=== PATIENT | female | born 1990 | race Caucasian/White ===

== ENCOUNTER 2017-11-22 09:57 | Emergency (ER) | payer MEDICAID ==
[~2017-11-22] VITALS: Ht 157.5 cm; Wt 70.3 kg
[2017-11-22 10:17] VITALS: Ht 157.5 cm; Wt 70.3 kg
[2017-11-22 11:07] LABS: BASOPHIL % 0.4 % (0-2); PLATELET COUNT 289 x10^3mcL (130-400); RED CELL DISTRIBUTION WIDTH 12.6 % (11.5-14.5)
[2017-11-22 11:22] LABS: CALCIUM 9.1 mg/dL (8.5-10.1); CARBON DIOXIDE 27.6 mmol/L (21-32); CHLORIDE SERUM 107 mmol/L (98-107); CREATININE SERUM 0.7 mg/dL (0.6-1.0); GFR1 > 60 mL/min; GLUCOSE SERUM 91 mg/dL (74-106); POTASSIUM SERUM 3.8 mmol/L (3.5-5.1); SODIUM SERUM 144 mmol/L (136-145)
[2017-11-22 11:30] LABS: ALBUMIN 4.1 g/dL (3.4-5.0); ALKALINE PHOSPHATASE 111 U/L (46-116); ALT/SGPT 25 U/L (14-59); AMYLASE 52 U/L (25-115); AST/SGOT 18 U/L (15-37); BILIRUBIN TOTAL 0.43 mg/dL (0.20-1.00); LIPASE 164 IU/L (73-393); TOTAL PROTEIN, SERUM 8.2 g/dL (6.4-8.2)
[2017-11-22 12:22] VITALS: BP 111/72
== END 2017-11-22 12:23 | disposition home or self-care (01) ==
LOC: ED 09:57
PROVIDERS: Specialist
DX: Z86.69 Personal history of other diseases of the nervous system and sense organs (principal); R10.11 Right upper quadrant pain
CPT/HCPCS: J1885; J2765; J7030; Q0092

== ENCOUNTER 2018-02-15 15:46 | Emergency (ER) | payer MEDICAID ==
[~2018-02-15] VITALS: Ht 157.5 cm; Wt 71.7 kg
[2018-02-15 16:00] VITALS: Ht 157.5 cm; Wt 71.7 kg
[2018-02-15 17:34] LABS: BASOPHIL % 0.3 % (0-2); PLATELET COUNT 342 x10^3mcL (130-400); RED CELL DISTRIBUTION WIDTH 13.4 % (11.5-14.5)
[2018-02-15 17:45] LABS: ALBUMIN 4.3 g/dL (3.4-5.0); ALKALINE PHOSPHATASE 112 U/L (46-116); ALT/SGPT 23 U/L (14-59); AST/SGOT 17 U/L (15-37); BILIRUBIN TOTAL 0.3 mg/dL (0.20-1.00); CALCIUM 9.4 mg/dL (8.5-10.1); CARBON DIOXIDE 25.8 mmol/L (21-32); CHLORIDE SERUM 101 mmol/L (98-107); CREATININE SERUM 0.7 mg/dL (0.6-1.0); GFR1 > 60 mL/min; GLUCOSE SERUM 95 mg/dL (74-106); SODIUM SERUM 138 mmol/L (136-145)
[2018-02-15 17:51] LABS: TOTAL PROTEIN, SERUM 8.7 g/dL (6.4-8.2)
[2018-02-15 17:52] LABS: POTASSIUM SERUM 2.7 mmol/L (3.5-5.1)
[2018-02-15 20:35] VITALS: BP 120/65
== END 2018-02-15 20:35 | disposition home or self-care (01) ==
LOC: ED 15:46
PROVIDERS: Emergency Medicine
DX: E87.6 Hypokalemia (principal); R07.89 Other chest pain
CPT/HCPCS: 85378; J1885; J3480; J7030; Q0092

== ENCOUNTER 2019-01-29 10:01 | Emergency (ER) | payer SELFPAY ==
[~2019-01-29] VITALS: Ht 165.1 cm; Wt 63.5 kg
[2019-01-29 10:03] VITALS: Ht 165.1 cm; Wt 63.5 kg
[2019-01-29 11:29] VITALS: BP 104/56
== END 2019-01-29 11:29 | disposition home or self-care (01) ==
LOC: ED 10:01
DX: G40.909 Epilepsy, unspecified, not intractable, without status epilepticus (principal); Z76.0 Encounter for issue of repeat prescription
CPT/HCPCS: 82962

== ENCOUNTER 2019-02-02 19:18 | Emergency (ER) | payer SELFPAY ==
[~2019-02-02] VITALS: Ht 157.5 cm; Wt 68.5 kg
[2019-02-02 19:27] VITALS: Ht 157.5 cm; Wt 68.5 kg
[2019-02-02 19:56] LABS: BASOPHIL % 0.3 % (0-2); PLATELET COUNT 382 x10^3mcL (130-400); RED CELL DISTRIBUTION WIDTH 13.9 % (11.5-14.5)
[2019-02-02 20:05] LABS: CALCIUM 8.9 mg/dL (8.5-10.1); CARBON DIOXIDE 29.6 mmol/L (21-32); CHLORIDE SERUM 103 mmol/L (98-107); CREATININE SERUM 0.7 mg/dL (0.6-1.0); GFR1 > 60 mL/min; GLUCOSE SERUM 105 mg/dL (74-106); POTASSIUM SERUM 3.3 mmol/L (3.5-5.1); SODIUM SERUM 141 mmol/L (136-145)
[2019-02-02 20:12] LABS: ALBUMIN 4.4 g/dL (3.4-5.0); ALKALINE PHOSPHATASE 106 U/L (46-116); ALT/SGPT 23 U/L (14-59); AST/SGOT 21 U/L (15-37); BILIRUBIN TOTAL 0.3 mg/dL (0.20-1.00)
[2019-02-02 20:13] LABS: TOTAL PROTEIN, SERUM 8.5 g/dL (6.4-8.2)
[2019-02-02 21:20] VITALS: BP 111/65
== END 2019-02-02 21:20 | disposition home or self-care (01) ==
LOC: ED 19:18
DX: R07.89 Other chest pain (principal); R42 Dizziness and giddiness
CPT/HCPCS: 36415

== ENCOUNTER 2019-02-08 13:27 | Emergency (ER) | payer MEDICAID ==
[~2019-02-08] VITALS: Ht 157.5 cm; Wt 68.0 kg
[2019-02-08 13:32] VITALS: Ht 157.5 cm; Wt 68.0 kg
[2019-02-08 15:59] VITALS: BP 122/81
== END 2019-02-08 15:59 | disposition home or self-care (01) ==
LOC: ED 13:27
DX: F41.9 Anxiety disorder, unspecified (principal)
CPT/HCPCS: J2060

== ENCOUNTER 2019-02-20 12:25 | Emergency (ER) | payer MEDICAID ==
[~2019-02-20] VITALS: Ht 157.5 cm; Wt 68.3 kg
[2019-02-20 12:29] VITALS: Ht 157.5 cm; Wt 68.3 kg
[2019-02-20 16:45] VITALS: BP 100/64
== END 2019-02-20 16:45 | disposition home or self-care (01) ==
LOC: ED 12:25
DX: R42 Dizziness and giddiness (principal)
CPT/HCPCS: J2060; J8597

== ENCOUNTER 2019-03-05 15:54 | Emergency (ER) | payer MEDICAID ==
[~2019-03-05] VITALS: Ht 157.5 cm; Wt 68.0 kg
[2019-03-05 15:57] VITALS: Ht 157.5 cm; Wt 68.0 kg
[2019-03-05 17:44] LABS: BASOPHIL % 0.4 % (0-2); PLATELET COUNT 310 x10^3mcL (130-400); RED CELL DISTRIBUTION WIDTH 13.1 % (11.5-14.5)
[2019-03-05 18:01] LABS: CALCIUM 9.2 mg/dL (8.5-10.1); CARBON DIOXIDE 32.6 mmol/L (21-32); CHLORIDE SERUM 101 mmol/L (98-107); CREATININE SERUM 0.8 mg/dL (0.6-1.0); GFR1 > 60 mL/min; GLUCOSE SERUM 92 mg/dL (74-106); POTASSIUM SERUM 3.9 mmol/L (3.5-5.1); SODIUM SERUM 138 mmol/L (136-145)
[2019-03-05 18:06] LABS: ALBUMIN 3.8 g/dL (3.4-5.0); ALKALINE PHOSPHATASE 93 U/L (46-116); ALT/SGPT 23 U/L (14-59); AST/SGOT 14 U/L (15-37); BILIRUBIN TOTAL 0.17 mg/dL (0.20-1.00); TOTAL PROTEIN, SERUM 7.6 g/dL (6.4-8.2)
[2019-03-05 18:56] VITALS: BP 128/79
== END 2019-03-05 18:56 | disposition home or self-care (01) ==
LOC: ED 15:54
PROVIDERS: Emergency Medicine
DX: R56.9 Unspecified convulsions (principal)
CPT/HCPCS: J1953

== ENCOUNTER 2019-03-28 14:58 | Emergency (ER) | payer MEDICAID ==
[~2019-03-28] VITALS: Ht 157.5 cm; Wt 64.9 kg
[2019-03-28 15:00] VITALS: Ht 157.5 cm; Wt 64.9 kg
== END 2019-03-28 15:34 | disposition home or self-care (01) ==
LOC: ED 14:58
DX: B34.9 Viral infection, unspecified (principal)

== ENCOUNTER 2019-03-30 06:16 | Emergency (ER) | payer MEDICAID ==
[~2019-03-30] VITALS: Ht 157.5 cm; Wt 65.8 kg
[2019-03-30 06:17] VITALS: Ht 157.5 cm; Wt 65.8 kg
[2019-03-30 10:46] VITALS: BP 113/81
== END 2019-03-30 10:46 | disposition home or self-care (01) ==
LOC: ED 06:16
DX: G40.909 Epilepsy, unspecified, not intractable, without status epilepticus (principal); J98.01 Acute bronchospasm
CPT/HCPCS: J2930; J7613; J7644

== ENCOUNTER 2019-04-10 21:01 | Emergency (ER) | payer MEDICAID ==
[~2019-04-10] VITALS: Ht 157.5 cm; Wt 65.8 kg
[2019-04-10 21:05] VITALS: Ht 157.5 cm; Wt 65.8 kg
[2019-04-10 21:58] LABS: microscopic required? NO
[2019-04-10 22:05] LABS: CARBON DIOXIDE 28.7 mmol/L (21-32); CHLORIDE SERUM 101 mmol/L (98-107); GLUCOSE SERUM 88 mg/dL (74-106); POTASSIUM SERUM 3.4 mmol/L (3.5-5.1); SODIUM SERUM 138 mmol/L (136-145)
[2019-04-10 22:06] LABS: CREATININE SERUM 0.5 mg/dL (0.6-1.0); GFR1 > 60 mL/min
[2019-04-10 22:37] LABS: urine erythrocyte NEGATIVE (NEGATIVE)
[2019-04-10 22:50] LABS: AMPHETAMINE QUAL UR NONE DETECTED (See below)
[2019-04-10 23:29] VITALS: BP 103/62
== END 2019-04-10 23:29 | disposition home or self-care (01) ==
LOC: ED 21:01
PROVIDERS: Emergency Medicine
DX: R56.9 Unspecified convulsions (principal); R51 Headache; K13.0 Diseases of lips; J02.9 Acute pharyngitis, unspecified
CPT/HCPCS: J1953; J7030

== ENCOUNTER 2019-04-15 09:31 | Emergency (ER) | payer MEDICAID ==
[~2019-04-15] VITALS: Ht 157.5 cm; Wt 64.9 kg
[2019-04-15 09:33] VITALS: Ht 157.5 cm; Wt 64.9 kg
[2019-04-15 10:11] LABS: CALCIUM 9.3 mg/dL (8.5-10.1); CARBON DIOXIDE 27.6 mmol/L (21-32); CHLORIDE SERUM 104 mmol/L (98-107); CREATININE SERUM 0.6 mg/dL (0.6-1.0); GFR1 > 60 mL/min; GLUCOSE SERUM 84 mg/dL (74-106); POTASSIUM SERUM 3.9 mmol/L (3.5-5.1); SODIUM SERUM 141 mmol/L (136-145)
[2019-04-15 10:16] LABS: ALBUMIN 4.1 g/dL (3.4-5.0); ALKALINE PHOSPHATASE 71 U/L (46-116); ALT/SGPT 26 U/L (14-59); AST/SGOT 14 U/L (15-37); BILIRUBIN TOTAL 0.6 mg/dL (0.20-1.00)
[2019-04-15 11:17] VITALS: BP 111/65
== END 2019-04-15 11:17 | disposition home or self-care (01) ==
LOC: ED 09:31
PROVIDERS: Emergency Medicine
DX: R56.9 Unspecified convulsions (principal)
CPT/HCPCS: 36415; J2060

== ENCOUNTER 2019-04-26 09:44 | Emergency (ER) | payer MEDICAID ==
[~2019-04-26] VITALS: Ht 157.5 cm; Wt 63.0 kg
[2019-04-26 09:59] VITALS: BP 109/70; Ht 157.5 cm; Wt 63.0 kg
== END 2019-04-26 11:27 | disposition home or self-care (01) ==
LOC: ED 09:44
DX: R10.30 Lower abdominal pain, unspecified (principal); N93.9 Abnormal uterine and vaginal bleeding, unspecified; W01.0XXA Fall on same level from slipping, tripping and stumbling without subsequent striking against object, initial encounter; Y93.89 Activity, other specified; Y92.89 Other specified places as the place of occurrence of the external cause; Y99.8 Other external cause status

== ENCOUNTER 2019-05-04 15:19 | Emergency (ER) | payer MEDICAID ==
[~2019-05-04] VITALS: Ht 157.5 cm; Wt 64.0 kg
[2019-05-04 15:29] VITALS: Ht 157.5 cm; Wt 64.0 kg
[2019-05-04 16:11] LABS: BASOPHIL % 0.7 % (0-2); PLATELET COUNT 313 x10^3mcL (130-400); RED CELL DISTRIBUTION WIDTH 13.4 % (11.5-14.5)
[2019-05-04 16:13] LABS: UA SPECIFIC GRAVITY <=1.005 (1.005-1.035); microscopic required? YES; urine erythrocyte TRACE (NEGATIVE)
[2019-05-04 16:16] LABS: CALCIUM 9.2 mg/dL (8.5-10.1); CARBON DIOXIDE 30.5 mmol/L (21-32); CHLORIDE SERUM 106 mmol/L (98-107); CREATININE SERUM 0.6 mg/dL (0.6-1.0); GFR1 > 60 mL/min; GLUCOSE SERUM 89 mg/dL (74-106); POTASSIUM SERUM 4.1 mmol/L (3.5-5.1); SODIUM SERUM 143 mmol/L (136-145)
[2019-05-04 16:22] LABS: ALBUMIN 3.8 g/dL (3.4-5.0); ALKALINE PHOSPHATASE 83 U/L (46-116); AST/SGOT 16 U/L (15-37); BILIRUBIN TOTAL 0.27 mg/dL (0.20-1.00); TOTAL PROTEIN, SERUM 7.8 g/dL (6.4-8.2)
[2019-05-04 17:10] LABS: ALT/SGPT 23 U/L (14-59)
[2019-05-04 18:45] VITALS: BP 99/61
== END 2019-05-04 18:45 | disposition home or self-care (01) ==
LOC: ED 15:19
PROVIDERS: Emergency Medicine
DX: R53.1 Weakness (principal); R42 Dizziness and giddiness; R30.0 Dysuria; R51 Headache
CPT/HCPCS: 36415

== ENCOUNTER 2019-05-10 19:40 | Emergency (ER) | payer MEDICAID ==
[~2019-05-10] VITALS: Ht 160 cm; Wt 63.5 kg
[2019-05-10 19:45] VITALS: Ht 160 cm; Wt 63.5 kg
[2019-05-10 20:09] LABS: BASOPHIL % 0.3 % (0-2); PLATELET COUNT 335 x10^3mcL (130-400); RED CELL DISTRIBUTION WIDTH 13.4 % (11.5-14.5)
[2019-05-10 20:16] LABS: CALCIUM 8.9 mg/dL (8.5-10.1); CARBON DIOXIDE 31.3 mmol/L (21-32); CHLORIDE SERUM 104 mmol/L (98-107); CREATININE SERUM 0.6 mg/dL (0.6-1.0); GFR1 > 60 mL/min; GLUCOSE SERUM 97 mg/dL (74-106); POTASSIUM SERUM 3.6 mmol/L (3.5-5.1); SODIUM SERUM 140 mmol/L (136-145)
[2019-05-10 20:22] LABS: ALBUMIN 3.8 g/dL (3.4-5.0); ALKALINE PHOSPHATASE 77 U/L (46-116); ALT/SGPT 22 U/L (14-59); AST/SGOT 7 U/L (15-37); BILIRUBIN TOTAL 0.46 mg/dL (0.20-1.00); TOTAL PROTEIN, SERUM 7.5 g/dL (6.4-8.2)
[2019-05-11 00:06] VITALS: BP 97/68
== END 2019-05-11 00:06 | disposition home or self-care (01) ==
LOC: ED 19:40
PROVIDERS: Emergency Medicine
DX: R20.2 Paresthesia of skin (principal); R20.0 Anesthesia of skin; R42 Dizziness and giddiness
CPT/HCPCS: 36415; Q9967

== ENCOUNTER 2019-06-09 16:43 | Emergency (ER) | payer MEDICAID ==
[~2019-06-09] VITALS: Ht 157.5 cm; Wt 65.8 kg
[2019-06-09 16:45] VITALS: Ht 157.5 cm; Wt 65.8 kg
[2019-06-09 17:28] LABS: BASOPHIL % 0.2 % (0-2); PLATELET COUNT 294 x10^3mcL (130-400); RED CELL DISTRIBUTION WIDTH 13.5 % (11.5-14.5)
[2019-06-09 17:37] LABS: CALCIUM 8.6 mg/dL (8.5-10.1); CARBON DIOXIDE 30.7 mmol/L (21-32); CHLORIDE SERUM 105 mmol/L (98-107); CREATININE SERUM 0.6 mg/dL (0.6-1.0); GFR1 > 60 mL/min; GLUCOSE SERUM 107 mg/dL (74-106); POTASSIUM SERUM 3.6 mmol/L (3.5-5.1); SODIUM SERUM 142 mmol/L (136-145)
[2019-06-09 17:42] LABS: ALBUMIN 3.9 g/dL (3.4-5.0); ALKALINE PHOSPHATASE 87 U/L (46-116); ALT/SGPT 29 U/L (14-59); AST/SGOT 27 U/L (15-37); BILIRUBIN TOTAL 0.2 mg/dL (0.20-1.00); MAGNESIUM 1.8 mg/dL (1.8-2.4); TOTAL PROTEIN, SERUM 7.7 g/dL (6.4-8.2)
[2019-06-09 19:35] VITALS: BP 104/63
== END 2019-06-09 19:35 | disposition home or self-care (01) ==
LOC: ED 16:43
PROVIDERS: Emergency Medicine
DX: R56.9 Unspecified convulsions (principal)
CPT/HCPCS: 36415

== ENCOUNTER 2019-06-10 17:16 | Emergency (ER) | payer MEDICAID ==
[~2019-06-10] VITALS: Ht 157.5 cm; Wt 65.8 kg
[2019-06-10 17:20] VITALS: Ht 157.5 cm; Wt 65.8 kg
[2019-06-10 19:47] VITALS: BP 98/77
== END 2019-06-10 19:47 | disposition home or self-care (01) ==
LOC: ED 17:16
DX: G40.909 Epilepsy, unspecified, not intractable, without status epilepticus (principal)

== ENCOUNTER 2019-07-27 19:19 | Emergency (ER) | payer MEDICAID ==
[~2019-07-27] VITALS: Ht 157.5 cm; Wt 65.8 kg
[2019-07-27 19:20] VITALS: Ht 157.5 cm; Wt 65.8 kg
[2019-07-27 20:12] LABS: ALBUMIN 4.1 g/dL (3.4-5.0); ALKALINE PHOSPHATASE 82 U/L (46-116); ALT/SGPT 30 U/L (14-59); AST/SGOT 21 U/L (15-37); BILIRUBIN TOTAL 0.3 mg/dL (0.20-1.00); CALCIUM 9.4 mg/dL (8.5-10.1); CARBON DIOXIDE 18.4 mmol/L (21-32); CHLORIDE SERUM 102 mmol/L (98-107); CREATININE SERUM 0.8 mg/dL (0.6-1.0); GFR1 > 60 mL/min; GLUCOSE SERUM 92 mg/dL (74-106); SODIUM SERUM 140 mmol/L (136-145); TOTAL PROTEIN, SERUM 7.8 g/dL (6.4-8.2)
[2019-07-27 20:20] LABS: POTASSIUM SERUM 2.9 mmol/L (3.5-5.1)
[2019-07-27 20:23] VITALS: BP 103/72
== END 2019-07-27 21:25 | disposition home or self-care (01) ==
LOC: ED 19:19
PROVIDERS: Emergency Medicine
DX: G40.909 Epilepsy, unspecified, not intractable, without status epilepticus (principal); E87.6 Hypokalemia
CPT/HCPCS: J1953; J2060

== ENCOUNTER 2019-08-13 19:36 | Emergency (ER) | payer MEDICAID ==
[~2019-08-13] VITALS: Ht 157.5 cm; Wt 64.9 kg
[2019-08-13 20:17] LABS: microscopic required? NO
[2019-08-13 20:26] LABS: UA SPECIFIC GRAVITY <=1.005 (1.005-1.035); urine erythrocyte NEGATIVE (NEGATIVE)
[2019-08-13 20:32] VITALS: BP 108/73
== END 2019-08-13 20:32 | disposition home or self-care (01) ==
LOC: ED 19:36
PROVIDERS: Emergency Medicine
DX: R30.0 Dysuria (principal); R10.9 Unspecified abdominal pain

== ENCOUNTER 2019-09-04 15:33 | Emergency (ER) | payer MEDICAID ==
[~2019-09-04] VITALS: Ht 157.5 cm; Wt 65.8 kg
[2019-09-04 15:35] VITALS: Ht 157.5 cm; Wt 65.8 kg
[2019-09-04 17:05] LABS: BASOPHIL % 0.2 % (0-2); PLATELET COUNT 305 x10^3mcL (130-400); RED CELL DISTRIBUTION WIDTH 13.2 % (11.5-14.5)
[2019-09-04 17:17] LABS: ALKALINE PHOSPHATASE 88 U/L (46-116); ALT/SGPT 26 U/L (14-59); AST/SGOT 14 U/L (15-37); CALCIUM 8.1 mg/dL (8.5-10.1); CARBON DIOXIDE 18.5 mmol/L (21-32); CHLORIDE SERUM 100 mmol/L (98-107); CHOLESTEROL 186 mg/dL (<200); CHOLESTEROL/HDL RATIO 3.5; CREATININE SERUM 0.9 mg/dL (0.6-1.0); GFR1 > 60 mL/min; GLUCOSE SERUM 105 mg/dL (74-106); HDL CHOLESTEROL 53 mg/dL (40-60); LIPASE 117 IU/L (73-393); SODIUM SERUM 137 mmol/L (136-145); TOTAL PROTEIN, SERUM 7.7 g/dL (6.4-8.2); TRIGLYCERIDES 63 mg/dL (<150)
[2019-09-04 17:19] LABS: POTASSIUM SERUM 2.8 mmol/L (3.5-5.1)
[2019-09-04 17:20] LABS: AMPHETAMINE QUAL UR NONE DETECTED (See below)
[2019-09-04 17:25] LABS: T3 TOTAL 1.09 ng/mL
[2019-09-04 17:43] LABS: FREE T4 0.97 ng/dL (0.76-1.46); T4(THYROXINE) 8.7 ug/dL (4.7-13.3)
[2019-09-04 19:28] VITALS: BP 109/70
== END 2019-09-04 19:28 | disposition home or self-care (01) ==
LOC: ED 15:33
PROVIDERS: Specialist
DX: G40.909 Epilepsy, unspecified, not intractable, without status epilepticus (principal); E87.6 Hypokalemia
CPT/HCPCS: 84439; J2060; J3475; J7030; Q0092

== ENCOUNTER 2019-09-05 10:11 | Emergency (ER) | payer MEDICAID ==
[~2019-09-05] VITALS: Ht 157.5 cm; Wt 65.8 kg
[2019-09-05 10:22] VITALS: Ht 157.5 cm; Wt 65.8 kg
[2019-09-05 10:43] LABS: BASOPHIL % 0.3 % (0-2); PLATELET COUNT 282 x10^3mcL (130-400); RED CELL DISTRIBUTION WIDTH 13.6 % (11.5-14.5)
[2019-09-05 10:59] LABS: ALBUMIN 3.8 g/dL (3.4-5.0); ALKALINE PHOSPHATASE 76 U/L (46-116); ALT/SGPT 24 U/L (14-59); AST/SGOT 17 U/L (15-37); BILIRUBIN TOTAL 0.45 mg/dL (0.20-1.00); CALCIUM 8.4 mg/dL (8.5-10.1); CARBON DIOXIDE 26.8 mmol/L (21-32); CHLORIDE SERUM 104 mmol/L (98-107); CREATININE SERUM 0.7 mg/dL (0.6-1.0); GFR1 > 60 mL/min; GLUCOSE SERUM 103 mg/dL (74-106); POTASSIUM SERUM 3.4 mmol/L (3.5-5.1); SODIUM SERUM 137 mmol/L (136-145); TOTAL PROTEIN, SERUM 7.3 g/dL (6.4-8.2)
[2019-09-05 12:47] VITALS: BP 115/71
== END 2019-09-05 12:47 | disposition home or self-care (01) ==
LOC: ED 10:11
PROVIDERS: Emergency Medicine
DX: G40.909 Epilepsy, unspecified, not intractable, without status epilepticus (principal)
CPT/HCPCS: G0480; J2060

== ENCOUNTER 2019-10-21 09:18 | Emergency (ER) | payer MEDICAID ==
[~2019-10-21] VITALS: Ht 157.5 cm; Wt 65.8 kg
[2019-10-21 09:23] VITALS: Ht 157.5 cm; Wt 65.8 kg
[2019-10-21 10:25] LABS: BASOPHIL % 0.4 % (0-2); PLATELET COUNT 287 x10^3mcL (130-400); RED CELL DISTRIBUTION WIDTH 13.6 % (11.5-14.5)
[2019-10-21 11:56] LABS: CALCIUM 8.2 mg/dL (8.5-10.1); CARBON DIOXIDE 22.9 mmol/L (21-32); CHLORIDE SERUM 100 mmol/L (98-107); CREATININE SERUM 0.8 mg/dL (0.6-1.0); GFR1 > 60 mL/min; GLUCOSE SERUM 105 mg/dL (74-106); POTASSIUM SERUM 3.2 mmol/L (3.5-5.1); SODIUM SERUM 136 mmol/L (136-145)
[2019-10-21 12:01] LABS: ALBUMIN 3.8 g/dL (3.4-5.0); ALKALINE PHOSPHATASE 76 U/L (46-116); ALT/SGPT 35 U/L (14-59); AST/SGOT 25 U/L (15-37); BILIRUBIN TOTAL 0.3 mg/dL (0.20-1.00); TOTAL PROTEIN, SERUM 7.3 g/dL (6.4-8.2)
[2019-10-21 13:06] VITALS: BP 104/65
== END 2019-10-21 13:06 | disposition home or self-care (01) ==
LOC: ED 09:18
PROVIDERS: Emergency Medicine
DX: G40.909 Epilepsy, unspecified, not intractable, without status epilepticus (principal)
CPT/HCPCS: J2060

== ENCOUNTER 2019-10-23 20:01 | Emergency (ER) | payer MEDICAID ==
[~2019-10-23] VITALS: Ht 157.5 cm; Wt 65.8 kg
[2019-10-23 20:04] VITALS: Ht 157.5 cm; Wt 65.8 kg
[2019-10-23 20:58] LABS: CALCIUM 8.6 mg/dL (8.5-10.1); CARBON DIOXIDE 29.4 mmol/L (21-32); CHLORIDE SERUM 101 mmol/L (98-107); CREATININE SERUM 0.6 mg/dL (0.6-1.0); GFR1 > 60 mL/min; GLUCOSE SERUM 84 mg/dL (74-106); POTASSIUM SERUM 3.8 mmol/L (3.5-5.1); SODIUM SERUM 137 mmol/L (136-145)
[2019-10-23 21:03] LABS: ALBUMIN 3.9 g/dL (3.4-5.0); ALKALINE PHOSPHATASE 69 U/L (46-116); ALT/SGPT 27 U/L (14-59); AST/SGOT 17 U/L (15-37); BILIRUBIN TOTAL 0.4 mg/dL (0.20-1.00); MAGNESIUM 1.8 mg/dL (1.8-2.4); TOTAL PROTEIN, SERUM 7.3 g/dL (6.4-8.2)
[2019-10-23 21:27] VITALS: BP 102/59
== END 2019-10-23 21:27 | disposition home or self-care (01) ==
LOC: ED 20:01
PROVIDERS: Emergency Medicine
DX: H60.92 Unspecified otitis externa, left ear (principal); G40.909 Epilepsy, unspecified, not intractable, without status epilepticus

== ENCOUNTER 2019-12-25 09:10 | Emergency (ER) | payer MEDICAID ==
[~2019-12-25] VITALS: Ht 157.5 cm; Wt 65.3 kg
[2019-12-25 09:20] VITALS: Ht 157.5 cm; Wt 65.3 kg
[2019-12-25 10:06] LABS: BASOPHIL % 0.3 % (0-2); PLATELET COUNT 257 x10^3mcL (130-400); RED CELL DISTRIBUTION WIDTH 12.8 % (11.5-14.5)
[2019-12-25 10:27] LABS: microscopic required? NO
[2019-12-25 10:39] LABS: urine erythrocyte NEGATIVE (NEGATIVE)
[2019-12-25 10:44] LABS: CALCIUM 8.2 mg/dL (8.5-10.1); CHLORIDE SERUM 104 mmol/L (98-107); CREATININE SERUM 0.7 mg/dL (0.6-1.0); GFR1 > 60 mL/min; GLUCOSE SERUM 85 mg/dL (74-106); POTASSIUM SERUM 3.3 mmol/L (3.5-5.1); SODIUM SERUM 137 mmol/L (136-145)
[2019-12-25 10:50] LABS: ALBUMIN 3.7 g/dL (3.4-5.0); ALKALINE PHOSPHATASE 76 U/L (46-116); ALT/SGPT 23 U/L (14-59); AST/SGOT 15 U/L (15-37); BILIRUBIN TOTAL 0.29 mg/dL (0.20-1.00); MAGNESIUM 1.8 mg/dL (1.8-2.4)
[2019-12-25 13:16] VITALS: BP 110/77
== END 2019-12-25 13:16 | disposition home or self-care (01) ==
LOC: ED 09:10
PROVIDERS: Student in an Organized Health Care Education/Training Program
DX: R56.9 Unspecified convulsions (principal); E87.6 Hypokalemia; R07.89 Other chest pain; R10.813 Right lower quadrant abdominal tenderness
CPT/HCPCS: 83880; J1885; J7030; Q0092; Q9967

== ENCOUNTER 2019-12-25 16:55 | Emergency (ER) | payer MEDICAID ==
[~2019-12-25] VITALS: Ht 157.5 cm; Wt 56.7 kg
[2019-12-25 17:01] VITALS: Ht 157.5 cm; Wt 56.7 kg
[2019-12-25 19:39] VITALS: BP 95/56
== END 2019-12-25 19:39 | disposition home or self-care (01) ==
LOC: ED 16:55
DX: R56.9 Unspecified convulsions (principal)
CPT/HCPCS: J1953; J7030

== ENCOUNTER 2019-12-26 00:07 | Emergency (ER) | payer MEDICAID ==
[~2019-12-26] VITALS: Ht 157.5 cm; Wt 63.5 kg
[2019-12-26 00:17] VITALS: Ht 157.5 cm; Wt 63.5 kg
[2019-12-26 01:11] LABS: BASOPHIL % 1.1 % (0-2); PLATELET COUNT 255 x10^3mcL (130-400); RED CELL DISTRIBUTION WIDTH 13.3 % (11.5-14.5)
[2019-12-26 01:19] LABS: CALCIUM 7.9 mg/dL (8.5-10.1); CARBON DIOXIDE 27.1 mmol/L (21-32); CHLORIDE SERUM 106 mmol/L (98-107); CREATININE SERUM 0.5 mg/dL (0.6-1.0); GFR1 > 60 mL/min; GLUCOSE SERUM 95 mg/dL (74-106); POTASSIUM SERUM 3.8 mmol/L (3.5-5.1); SODIUM SERUM 138 mmol/L (136-145)
[2019-12-26 01:23] LABS: ALBUMIN 3.4 g/dL (3.4-5.0); ALKALINE PHOSPHATASE 87 U/L (46-116); ALT/SGPT 33 U/L (14-59); AST/SGOT 38 U/L (15-37); BILIRUBIN TOTAL 0.18 mg/dL (0.20-1.00); TOTAL PROTEIN, SERUM 6.6 g/dL (6.4-8.2)
[2019-12-26 03:45] VITALS: BP 107/67
== END 2019-12-26 03:45 | disposition home or self-care (01) ==
LOC: ED 00:07
PROVIDERS: Emergency Medicine
DX: R07.89 Other chest pain (principal); F41.9 Anxiety disorder, unspecified; G40.909 Epilepsy, unspecified, not intractable, without status epilepticus
CPT/HCPCS: J2060; Q0092

== ENCOUNTER 2020-02-14 11:56 | Emergency (ER) | payer MEDICAID ==
[~2020-02-14] VITALS: Ht 157.5 cm; Wt 65.9 kg
[2020-02-14 12:07] VITALS: Ht 157.5 cm; Wt 65.9 kg
[2020-02-14 14:37] LABS: UA SPECIFIC GRAVITY 1.015 (1.005-1.035); microscopic required? YES; urine erythrocyte NEGATIVE (NEGATIVE)
[2020-02-14 17:38] VITALS: BP 106/74
== END 2020-02-14 17:39 | disposition home or self-care (01) ==
LOC: ED 11:56
PROVIDERS: Emergency Medicine
DX: G40.909 Epilepsy, unspecified, not intractable, without status epilepticus (principal); N39.0 Urinary tract infection, site not specified

== ENCOUNTER 2020-03-06 15:55 | Emergency (ER) | payer MEDICAID ==
[~2020-03-06] VITALS: Ht 157.5 cm; Wt 61.7 kg
[2020-03-06 15:57] VITALS: Ht 157.5 cm; Wt 61.7 kg
[2020-03-06 17:53] VITALS: BP 117/77
== END 2020-03-06 17:53 | disposition home or self-care (01) ==
LOC: ED 15:55
DX: L29.9 Pruritus, unspecified (principal); R30.0 Dysuria; Z76.0 Encounter for issue of repeat prescription

== ENCOUNTER 2020-03-29 11:45 | Emergency (ER) | payer MEDICAID ==
[~2020-03-29] VITALS: Ht 157.5 cm; Wt 67.6 kg
[2020-03-29 11:48] VITALS: Ht 157.5 cm; Wt 67.6 kg
[2020-03-29 15:05] VITALS: BP 107/70
== END 2020-03-29 15:05 | disposition home or self-care (01) ==
LOC: ED 11:45
DX: G40.909 Epilepsy, unspecified, not intractable, without status epilepticus (principal)
CPT/HCPCS: J2060

== ENCOUNTER 2020-03-30 10:44 | Emergency (ER) | payer MEDICAID ==
[~2020-03-30] VITALS: Ht 157.5 cm; Wt 67.1 kg
[2020-03-30 10:58] VITALS: Ht 157.5 cm; Wt 67.1 kg
[2020-03-30 14:30] LABS: CALCIUM 9.1 mg/dL (8.5-10.1); CARBON DIOXIDE 26.2 mmol/L (21-32); CHLORIDE SERUM 102 mmol/L (98-107); CREATININE SERUM 0.7 mg/dL (0.6-1.0); GFR1 > 60 mL/min; GLUCOSE SERUM 83 mg/dL (74-106); POTASSIUM SERUM 4.1 mmol/L (3.5-5.1); SODIUM SERUM 137 mmol/L (136-145)
[2020-03-30 14:35] LABS: ALKALINE PHOSPHATASE 86 U/L (46-116); ALT/SGPT 30 U/L (14-59); AST/SGOT 16 U/L (15-37); BILIRUBIN TOTAL 0.2 mg/dL (0.20-1.00)
[2020-03-30 15:18] VITALS: BP 101/47
== END 2020-03-30 15:18 | disposition home or self-care (01) ==
LOC: ED 10:44
PROVIDERS: Emergency Medicine
DX: F41.9 Anxiety disorder, unspecified (principal); R51.9 Headache, unspecified

== ENCOUNTER 2020-04-25 12:54 | Emergency (ER) | payer MEDICAID ==
[~2020-04-25] VITALS: Ht 157.5 cm; Wt 67.6 kg
[2020-04-25 13:04] VITALS: Ht 157.5 cm; Wt 67.6 kg
[2020-04-25 16:02] VITALS: BP 138/89
== END 2020-04-25 16:02 | disposition home or self-care (01) ==
LOC: ED 12:54
DX: G40.909 Epilepsy, unspecified, not intractable, without status epilepticus (principal); R20.2 Paresthesia of skin; R51.9 Headache, unspecified
CPT/HCPCS: J1885; J2060

== ENCOUNTER 2020-04-27 10:12 | Emergency (ER) | payer MEDICAID ==
[~2020-04-27] VITALS: Ht 157.5 cm; Wt 67.6 kg
[2020-04-27 10:25] VITALS: Ht 157.5 cm; Wt 67.6 kg
[2020-04-27 11:19] LABS: BASOPHIL % 0.4 % (0.2-1.3); PLATELET COUNT 259 x10^3mcL (179-408); RED CELL DISTRIBUTION WIDTH 13.3 % (12.3-17.7)
[2020-04-27 11:41] LABS: CALCIUM 8.9 mg/dL (8.5-10.1); CARBON DIOXIDE 28.8 mmol/L (21-32); CHLORIDE SERUM 107 mmol/L (98-107); CREATININE SERUM 0.7 mg/dL (0.6-1.0); GFR1 > 60 mL/min; GLUCOSE SERUM 90 mg/dL (74-106); POTASSIUM SERUM 4.2 mmol/L (3.5-5.1); SODIUM SERUM 141 mmol/L (136-145)
[2020-04-27 11:44] LABS: ALBUMIN 3.6 g/dL (3.4-5.0); ALKALINE PHOSPHATASE 63 U/L (46-116); ALT/SGPT 30 U/L (14-59); AST/SGOT 17 U/L (15-37); MAGNESIUM 1.9 mg/dL (1.8-2.4); TOTAL PROTEIN, SERUM 7.1 g/dL (6.4-8.2)
[2020-04-27 11:57] LABS: microscopic required? NO
[2020-04-27 13:02] LABS: UA SPECIFIC GRAVITY <=1.005 (1.005-1.035); urine erythrocyte NEGATIVE (NEGATIVE)
[2020-04-27 13:08] LABS: AMPHETAMINE QUAL UR NONE DETECTED (See below)
[2020-04-27 14:11] VITALS: BP 99/58
== END 2020-04-27 14:11 | disposition home or self-care (01) ==
LOC: ED 10:12
PROVIDERS: Emergency Medicine
DX: G40.909 Epilepsy, unspecified, not intractable, without status epilepticus (principal)
CPT/HCPCS: 82962; G0480

== ENCOUNTER 2020-04-27 18:15 | Emergency (ER) | payer MEDICAID ==
[~2020-04-27] VITALS: Ht 157.5 cm; Wt 68.0 kg
[2020-04-27 19:51] VITALS: BP 106/66
== END 2020-04-27 19:51 | disposition home or self-care (01) ==
LOC: ED 18:15
DX: M94.0 Chondrocostal junction syndrome [Tietze] (principal); G40.909 Epilepsy, unspecified, not intractable, without status epilepticus

== ENCOUNTER 2020-06-02 16:55 | Emergency (ER) | payer MEDICAID ==
[~2020-06-02] VITALS: Ht 157.5 cm; Wt 69.9 kg
[2020-06-02 17:03] VITALS: Ht 157.5 cm; Wt 69.9 kg
[2020-06-02 17:56] LABS: CARBON DIOXIDE 26.5 mmol/L (21-32); CHLORIDE SERUM 103 mmol/L (98-107); CREATININE SERUM 0.6 mg/dL (0.6-1.0); GFR1 > 60 mL/min; GLUCOSE SERUM 97 mg/dL (74-106); POTASSIUM SERUM 3.5 mmol/L (3.5-5.1); SODIUM SERUM 140 mmol/L (136-145)
[2020-06-02] MEDS ORDERED: MACROBID100 MG PO (18:06)
[2020-06-02] MEDS ORDERED: ATIVAN1 MG PO (18:06)
[2020-06-02 18:20] VITALS: BP 153/75
== END 2020-06-02 18:20 | disposition home or self-care (01) ==
LOC: ED 16:55
PROVIDERS: Emergency Medicine
DX: N39.0 Urinary tract infection, site not specified (principal)